=== PATIENT | male | born 1985 | race Caucasian/White ===

== ENCOUNTER 2020-06-06 05:58 | Observation (INO) | payer OTHER ==
--- NOTE | 2020-06-06 07:47 | PDOC.FPRHP ---
- History of Present Illness Chief Complaint: Chest Pain History of Present Illness: Mr. Delgado is a 34 yo man with PMH of sleep apnea, GERD, and cardiomegaly who presented to the ED for chest pain. He reports that the pain began last night around 8 pm while he was out for dinner. After he returned home, he took Ibuprofen and tums but did not experience any relief. At the outside hospital, he was given morphine, nitro, and aspirin with reported improvement. He describes the pain as tight, rating it a 6/10. Reports improvement with leaning forward. Says that the pain is worse with deep inspiration and lying down. Denies edema, SOB, headache, fever, cough, abdominal pain. Pt reports that he was diagnosed with cardiomegaly 1.5 years ago. He says that he followed up with a police chief and is being managed my his out-of-town PCP with q6mon xrays. ED Course: Pt was transferred from outside hospital where he received morphine, aspirin, and nitro. EKG and labs obtained were normal. Chest xray showed cardiomegaly. 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 - Review of Systems General: denies: fever/chills, fatigue Eyes: denies: eye pain, vision changes ENT: denies: nasal congestion, rhinorrhea Respiratory: denies: cough, shortness of breath Cardiovascular: reports: chest pain, palpitation. denies: edema Gastrointestinal: denies: nausea, vomiting, abdominal pain, GI bleeding Genitourinary: denies: dysuria, polyuria Skin: denies: rashes, lesions Musculoskeletal: denies: pain, tenderness, swelling Neurological: denies: numbness, weakness Psychological: denies: anxiety, depression - Vital signs BP: 132/71 HR: 98 RR: 20 Tmax: 99.1 Pox: 98% on RA Wt: 167 kg - Physical Exam -Constitutional: Appears to be in pain HEENT: normocephalic and atraumatic, PERRLA, grossly normal vision, grossly normal hearing, MMM Neck: supple, FROM Chest: no-tender to palpation, no lesions Heart: RRR, normal S1/S2, no murmurs/rubs/gallops Lungs: CTAB, no respiratory distress, good air movement Abdomen: soft, non-tender, bowel sounds present Musculoskeletal: normal structure, normal tone, ROM grossly normal Neurological: no focal deficit, normal sensation Skin: no rash/lesions, no jaundice Heme/Lymphatic: no unusual bruising or bleeding, no petechia Psychiatric: normal mood and affect, good judgment and insight, intact recent and remote memory FMR H&P: Results - EKG Interpretation EKG: NSR - Radiology Interpretation Chest x-ray Status: image reviewed by me, report reviewed by me Additional comment: Cardiomegaly FMR H&P: A/P - Problem List (1) Cardiomegaly Status: Chronic Code(s): I51.7 - CARDIOMEGALY (2) Atypical chest pain Status: Acute Code(s): R07.89 - OTHER CHEST PAIN - Plan Mr. Delgado is a 34 yo man being admitted for atypical chest pain. Atypical Chest Pain 2/2 to pleuritis vs. pericarditis vs. GERD vs. Cardiomegaly -pt reports hx of cardiomegaly diagnosed 1.5 years ago, being followed by q6mon chest xrays -reports hx of GERD -reports pain worse with inspiration and better with leaning forward -EKG, Trop normal -Chest Xray: cardiomegaly -Echo ordered -will obtain CTA due to worsening pain and to rule out PE; satting well on RA GERD -pantoprazole Code: FULL PCP: Out of town Diet: HH Fluids: None PPx: Lovenox, Pantoprazole Dispo: [facility]; length of stay < 48 hrs. FMR H&P: Upper Level - Plan Date/Time: 06/06/20 [id number] Wanda, [Jolanta Keita], have evaluated this patient and agree with findings/plan as outlined by intern product marketing manager resident. Pertinent changes/additions are listed here. 34 yo M with PMH of GERD and enlarged heart presented as tfx from [facility] for chest pain. Started yesterday evening, feels like sharp/pressure. Wasn't improved with omeprazole so came into ER. Worse with laying down, improved with standing and leaning forward. Feels as if chest is "full." Given nitro, ASA, morphine, Zofran which improved chest pain initially but now has returned. Hx of enlarged heart found incidentally on a shoulder xray 6 months ago. PCP had planned to monitor with q6mo CXRs. 15 pack year hx. Patient showed picture of CXR 5 months ago in which heart was less enlarged than it is on CXR today. VS: 98bpm, 96% RA, 108/78mmHg PE: Gen: mild distress from pain Chest: No tenderness to palpation CV: RRR, no murmurs, rubs and gallups Abd: Soft, ND, NT Resp: CTAB, no respiratory distress Extrem: No edema, pulses 2+ Labs: BNP <10 Trop < 0.01 EKG: No acute ST/T wave changes, possible electrical alternans A/P: #Atypical chest pain -Differential martinez including pleuritis vs. GERD vs. cardiomyopathy -Trop negative x1, EKG no acute changes, tele monitoring, will obtain TTE -IV pantoprazole -CTA since pain worsening to r/o PE and also assess lung [facility] #GERD -IV pantoprazole Code: Full PCP: None Diet: HH LOS: <2 midnights Addendum - Attending - Attending Attestation Date/Time: 06/06/201929 I personally evaluated the patient and discussed the management with Dr. Bills/Bossman. H&P repeated by me. I agree with the History, Examination, Assessment and Plan documented above with any addition or exceptions noted below. Chest pain- EKG normal. Trop neg x3- history more consistent with pericarditis/ pleuritis. VSS Cardiomegaly on CXR- ECHO shows mild pericardial effusion but otherwise normal EF. Has been followed by cardiology with serial xrays. Dyspnea- ordered CtA and showed large mediastinal mass. Recommendation was for oncology evaluation. I discussed results in detail with patient. Patient with mediastinal mass that needs further evaluation. Next steps would be an oncology evaluation and then biopsy vs CV surgical consult for surgical removal. We discussed the options of continuing workup here today versus discharge and close f/u in his hometown. He prefers to get workup done in [facility]. His vitals are stable (no hypoxia, tachycardia, tachypnea, and no bp) and his pain at the time of my exam was 0/10. We discussed Er f/u precautions or worsening dyspnea, worsening chest pain or any ther worrisome symptoms. He will call PCP on Monday to begin referral process.
[2020-06-06] MEDS ORDERED: Senokot S 8.6-50 MG TAB PO PRN (07:48)
[2020-06-06] MEDS ORDERED: Ondansetron ODT 4 MG TAB PO PRN (07:48)
[2020-06-06] MEDS ORDERED: Ondansetron PF 4 MG/2 ML Vial IVP PRN (07:48)
[2020-06-06] MEDS ORDERED: Nitroglycerin 0.4 MG TAB 1 EACH PO PRN (07:56)
[2020-06-06 08:09] VITALS: BMI 46.0
[2020-06-06] MEDS: Nitroglycerin 0.4 MG TAB (25 Tab Bottle) SL PRN ×3 (08:51→09:02)
[2020-06-06] MEDS ORDERED: Enoxaparin Sodium 40 MG/0.4 ML SYRINGE SC SCH (09:00)
[2020-06-06 10:57] LABS: Troponin I 0.015 ng/mL (< 0.028)
[2020-06-06] MEDS ORDERED: Pantoprazole 40 MG VIAL IVP SCH (11:30)
--- NOTE | 2020-06-06 11:41 | CT ---
CTA Angio Chest W WO Con 06/06/2020 9:49 AM Indication: 34-year-old male with shortness of breath Technique: Multiple CTA images were obtained of the thorax with IV contrast. 3-D rendering: MIP seble nstructed images were created and reviewed. Comparison: Chest radiograph dated June 06, 2020 Findings: Pulmonary arteries: There is mass effect from an anterior superior mediastinal mass on the left main pulmonary artery as well as the left aspect of the left ventricle. No central or segmental pulmonary embolus is evident. Heart and Aorta: There is a large anterior mediastinal mass extending along the left anterolateral a spect of the hard measuring 12.4 x 12.2 x 10.4 cm. There is a small pericardial effusion. Mediastinum:Superior and anterior mediastinal mass as above Lungs:There is an area of subsegmental volume loss within the lingula. No suspicious pulmonary infilt rate is evident. Areas of subsegmental volume loss are seen within the left lower lobe. Pleural space: Clear. Upper Abdomen: No acute abnormality. Osseous Structures: No acute osseous abnormality. Soft tissues:No abnormality. Other findings:None. Impression: 1. No central or segmental pulmonary embolus. 2. Large anterior and superior mediastinal mass with mass effect on the anterior and lateral aspect o f the heart and left main pulmonary artery. Differential considerations include entities such as splenic tumors or lymphoma. Germ cell lesion is not excluded. Thyroid lesion is felt to be less likel y. 3. Recommend hematology oncology consultation. 4. Small pericardial effusion. 5. Subsegmental volume loss in the lingula and left lower lobe.
[2020-06-06 11:48] VITALS: TEMP 98.3
[2020-06-06] MEDS ORDERED: Iopamidol-370 76% 500 ML 1 ML ONE (12:22)
[2020-06-06 13:03] VITALS: BP 126/70
[2020-06-06] MEDS ORDERED: Ketorolac Tromethamine 30 MG/ML VIAL IVP SCH ×2 (13:30→20:00)
[2020-06-06] MEDS ORDERED: Ibuprofen 800 MG TAB PO SCH (14:00)
--- NOTE | 2020-06-06 14:48 | CON ---
DATE OF CONSULTATION: 06/06/2020 REASON FOR CONSULTATION: Chest pain. HISTORY OF PRESENT ILLNESS: Mr. Delgado is a 34-year-old gentleman. He is visiting from [place], started having chest pain last night. It is in the anterior portion of his chest. This is continuous. It has been present since last night. He says it is much worse with a breath, does not hurt much different when he twists or turns. It is better sitting up and worse lying down. Cardiac enzymes have been negative. PAST MEDICAL HISTORY: The patient has a history of an enlarged cardiac silhouette on chest x-ray. He says he has had EKG and chest x-ray. He does not think he has had any other imaging. No previous cardiac history. The patient does not take any medicines on a regular basis other than omeprazole. The patient has a history of smoking 15 pack-year history. REVIEW OF SYSTEMS: CONSTITUTIONAL: He has been trying to lose some weight recently, which he has been successful at, lost about over 10 pounds. VISION: No changes. HEARING: No changes. PULMONARY: No difficulty breathing. CARDIAC: Recent chest pain as mentioned. GASTROINTESTINAL: No nausea, vomiting, or diarrhea. He has reflux. He is on medicines for that. SKIN: No rashes. PHYSICAL EXAMINATION: GENERAL: This is a pleasant 34-year-old man. He is a very large gentleman, 6 feet 3 inches tall, 368 pounds. He is quite muscular as well as being overweight. NECK: Neck veins are normal. Carotid normal upstrokes. No bruits. LUNGS: Clear. CARDIAC: Normal S1, normal S2. I do not hear murmur, rub, or gallop. Heart sounds somewhat distant. ABDOMEN: Obese, nontender. EXTREMITIES: No clubbing. No cyanosis. There is no edema. DIAGNOSTIC DATA: Cardiac enzymes are negative on the laboratory with normal troponins. Echocardiogram shows a very technical and limited study with suboptimal images. The ejection fraction appears to be within normal limits. There is a moderate-sized pericardial effusion, not hemodynamically significant. EKG shows sinus rhythm, no acute changes. CT scan shows a mass in the mediastinum, some collapse of the lingula and some of the portion of the left lower lobe as well with subsegmental volume loss in the superior and anterior mediastinal mass 12.4 x 12.2 x 10.4 cm, seems to be wrapping around the heart at left anterolateral aspect. ASSESSMENT: 1. Chest pain seems to be either pericardial or from the mediastinum. 2. Mass as outlined above. 3. Obesity. PLAN: 1. I would recommend pulmonary consultation, may also need thoracic surgery consultation. 2. Given 2 doses of anti-inflammatories to see if this helps with his pain. Job ID: [id number]
--- NOTE | 2020-06-06 20:49 | DIS ---
DATE OF ADMISSION: 06/06/2020 DATE OF DISCHARGE: 06/06/2020 ADMITTING ATTENDING: Monae Lipscomb MD DISCHARGE ATTENDING: Monae Lipscomb MD. CONSULTS: None. PROCEDURES/IMAGES: 1. Chest X-ray at outside hospital showed cardiomegaly. 2. Echo: - Technically difficult study with subopimal images. - Left ventricle ejection fraction grossly normal. Medium pericardial effusion with no evidence of tamponade. 3. CTA of chest and thorax: - large anterior and superior mediastinal mass with mass effect on the anterior and lateral aspects of the heart and left main pulmonary artery. - Differential considerations include indices such as splenic tumors or lymphoma. Germ cell lesion is not excluded. Thyroid lesion is felt to be less likely. -A small pericardial effusion. - Subsegmental volume loss in the lingula and left lower lobe. PRIMARY DIAGNOSIS: Atypical chest pain secondary to large mediastinal mass. SECONDARY DIAGNOSIS: Gastroesophageal reflux disease. DISCHARGE MEDICATIONS: Continue home omeprazole 40 mg 1 tab p.o. daily. Discontinued medications: None. HISTORY OF PRESENT ILLNESS/HOSPITAL COURSE: Mr. Delgado is a 34-year-old male with past medical history of sleep apnea, GERD, and cardiomegaly, who presented to the emergency room for chest pain. He was originally at the emergency room in [place], but was transferred to [facility]. He reported that the chest pain began last night and was unrelieved with Ibuprofen and Tums. The chest pain was made worse with deep inspiration and lying down and was made better with leaning forward. At the outside hospital, he was given morphine, nitro and aspirin, which reportedly improved his pain. Both his EKG and troponins were normal. Due to the cardiomegaly seen on Xray, we admitted the patient for further workup including an echo. During the patient's stay, he developed severe chest pain and was having difficulty breathing, so a CTA was ordered. The CTA revealed a large mediastinal mass as mentioned in imaging above. At this point, we discussed the findings with the patient and explained all of his options, including us consulting heme/onc during this hospitalization or following up with his primary care physician and establishing care closer to home. The patient chose the latter. It was recommended that the patient follow up next week with his physician in [facility]. DISPOSITION: Stable. DISCHARGE INSTRUCTIONS: 1. Location: Home. 2. Diet: Regular. 3. Activity: As tolerated. 4. Follow up: The patient should follow up with his primary care physician for further workup of his mediastinal mass. Job ID: [id number] MTDD
[2020-06-07] MEDS ORDERED: Pantoprazole 40 MG VIAL IVP SCH (09:00)
[2020-06-07 12:16] LABS: SARS-CoV-2 MS2 Positive; SARS-CoV-2 N Gene Negative; SARS-CoV-2 S Gene Negative; SARS-CoV-2 by NAA Not Detected (NotDetected); SARS-CoV-2 orf1ab Negative
--- NOTE | 2020-06-11 09:25 | EKG ---
Test Reason : CP Blood Pressure : / mmHG Vent. Rate : 094 BPM Atrial Rate : 094 BPM P-R Int : 146 ms QRS Dur : 092 ms QT Int : 348 ms P-R-T Axes : 006 000 050 degrees QTc Int : 435 ms Normal sinus rhythm Normal ECG No previous ECGs available Confirmed by BHARGAVI LAO M.D. ([id number]) on 06/11/2020 9:25:15 AM Referred By: JOSE J Confirmed By:BHARGAVI LAO M.D.
== END 2020-06-06 15:45 | disposition home or self-care (01) ==
LOC: ERS 05:58 → 2NO 07:57
PROVIDERS: ADMIT Family Medicine; ATTEND Family Medicine
DX: J98.59 Other diseases of mediastinum, not elsewhere classified (principal); R07.89 Other chest pain; K21.9 Gastro-esophageal reflux disease without esophagitis; I51.7 Cardiomegaly; G47.30 Sleep apnea, unspecified; I31.3 Pericardial effusion (noninflammatory); E66.9 Obesity, unspecified; Z68.42 Body mass index [BMI] 45.0-49.9, adult; Z87.891 Personal history of nicotine dependence; Z79.899 Other long term (current) drug therapy
CPT/HCPCS: 36415; 71275; 87635; 93005; 93010; 93306; 96372; 96374; 96375; 99285; C9113; G0378; J1650; J1885; Q9967; U0003